=== PATIENT | male | born 2005 | race Caucasian/White ===

== ENCOUNTER 2025-06-14 11:11 | Outpatient (CLI) | payer BC, SELFPAY ==
[2025-06-14 11:35] LABS: Hemoglobin* 14.1 gm/dL (13.5-17.5)
== END 2025-06-14 11:12 | disposition home or self-care (01) ==
PROVIDERS: Visit Provider Family Medicine
DX: R53.83 Other fatigue (principal)
CPT/HCPCS: 36415; 82728; 85018